=== PATIENT | male | born 1960 | race Caucasian/White ===

== ENCOUNTER 2021-11-12 11:08 | Outpatient (CLI) | payer BC | END 2021-11-12 11:09 | disposition home or self-care (01) | LOC: CSHMRI 11:08 | PROVIDERS: ATTEND Physician Assistant | DX: M54.41 Lumbago with sciatica, right side (principal); M47.816 Spondylosis without myelopathy or radiculopathy, lumbar region; M51.27 Other intervertebral disc displacement, lumbosacral region; N28.9 Disorder of kidney and ureter, unspecified | CPT/HCPCS: 72148 ==